=== PATIENT | female | born 1995 | race Caucasian/White ===

== ENCOUNTER 2018-07-18 09:47 | Day surgery (SDC) | payer BC ==
[2018-07-18 12:17] VITALS: BMI 29.1
[2018-07-18 13:17] VITALS: TEMP 97.7
[2018-07-18 14:22] VITALS: BP 126/80; PULSE 64
--- NOTE | 2018-07-21 13:35 | PATH ---
Surgical Pathology Report Patient Name: HUBERT GIBBONS [facility]. Rec. #: [id number] /Age/Gender: 1995 (Age: 22) / F Account: [id number] Location: U-ENDOSCOPY Taken: 07/18/2018 Received: 07/18/2018 Reported: 07/21/2018 Physicians: Alejo Scott D.O. Specimen(s) Received A: BX DUODENUM B: BX ANTRUM ERYTHEMA C: BX BODY AND ANGULARIS Clinical History Early satiety, nausea Postoperative diagnosis: Gastritis Final Diagnosis A. DUODENUM, BIOPSY: DUODENAL MUCOSA WITHOUT SIGNIFICANT PATHOLOGIC FINDINGS. B. STOMACH, ANTRUM, BIOPSY: GASTRIC ANTRAL MUCOSA WITH MODERATE CHRONIC GASTRITIS AND INTESTINAL METAPLASIA. IMMUNOHISTOCHEMICAL STAIN FOR H. PYLORI IS NEGATIVE. C. STOMACH, BODY/ANGULARIS, BIOPSY: GASTRIC BODY MUCOSA WITH MILD TO MODERATE CHRONIC GASTRITIS. IMMUNOHISTOCHEMICAL STAIN FOR H. PYLORI IS NEGATIVE. Electronically Signed Lorena Tena M.D. Gross Description A. Received in formalin, labeled "biopsy duodenum" are 5 anderson, irregular portions of soft tissue ranging from 0.3-0.4 cm. in greatest dimension. The specimens are submitted in toto in one cassette. B. Received in formalin, labeled "biopsy antrum" are 2 anderson, irregular portions of soft tissue measuring 0.2 and 0.7 cm. in greatest dimension. The specimens are submitted in toto in one cassette. C. Received in formalin, labeled "biopsy angularis" are 3 anderson, irregular portions of soft tissue ranging from 0.2-0.6 cm. in greatest dimension. The specimens are submitted in toto in one cassette. 07/18/201807/18/2018
== END 2018-07-18 14:22 | disposition home or self-care (01) ==
LOC: JASU-ENDO 09:47
PROVIDERS: ATTEND Internal Medicine Gastroenterology
PROC: 0DB68ZX Excision of Stomach, Via Natural or Artificial Opening Endoscopic, Diagnostic (ICD-10-PCS; 2018-07-18)
PROC: 0DB98ZX Excision of Duodenum, Via Natural or Artificial Opening Endoscopic, Diagnostic (ICD-10-PCS; principal; 2018-07-18 11:30)
DX: K31.89 Other diseases of stomach and duodenum (principal); R11.0 Nausea
CPT/HCPCS: 36415; 76700-TC; 84702; 88305-TC; 88342-TC